=== PATIENT | female | born 1985 | race Caucasian/White ===

== ENCOUNTER 2018-02-21 16:53 | Emergency (ER) | END 2018-02-21 19:44 | disposition home or self-care (01) ==

== ENCOUNTER 2018-09-23 21:10 | Inpatient (IN) | payer MEDICAID ==
[~2018-09-23] VITALS: Ht 149.9 cm; Wt 67.8 kg
[~2018-09-23 21:10] MED LIST: ACET500C5 PO; PREN1TAB49
[2018-09-23] MEDS ORDERED: LACTATED RINGER'S 1,000 ML IV ONE (22:30)
[2018-09-23] MEDS: LACTATED RINGER'S 1,000 ML IV SCH (22:30)
[2018-09-24] MEDS ORDERED: TERBUTALINE 1 MG/ML INJ SC ONE (00:30)
[2018-09-24 00:36] VITALS: Ht 149.9 cm; Wt 67.8 kg
[2018-09-24 00:37] VITALS: BP 103/64; RESP 18
[2018-09-24] MEDS: LACTATED RINGER'S 1,000 ML IV SCH ×4 (02:00→12:48)
[2018-09-24] MEDS ORDERED: METHYLERGONOVINE 0.2 MG INJ IM PRN ×2 (04:00→17:30)
[2018-09-24] MEDS ORDERED: MISOPROSTOL 200 MCG TAB PR PRN ×2 (04:00→17:30)
[2018-09-24] MEDS ORDERED: OXYTOCIN 30 UNITS/LR 500 ML IV PRN ×2 (04:00→17:30)
[2018-09-24] MEDS ORDERED: CARBOPROST 250 MCG INJ IM PRN ×2 (04:00→17:30)
[2018-09-24] MEDS ORDERED: OXYTOCIN 30 UNITS/LR 500 ML IV SCH (04:00)
--- NOTE | 2018-09-24 05:38 | TRIAGE ---
OB Triage Datetime Report Generated by CPN: 09/24/2018 05:37 Datetime: 09/24/2018 05:27 Stage of : Labor Respiratory Effort: Unlabored Breath Sounds, Left: Clear and Equal Breath Sounds, Right: Clear and Equal Labor Evaluation Frequency: 3 Monitor Mode: External Duration (sec)2399: 35-65 Quality: Mild Pattern: Normal: <= 5 Contractions in 10 Minutes Resting Tone [place]: Relaxed Interventions: Side to Side Heart Rate FHR Baseline Rate: 130 Monitor Mode: External US FHR Baseline Changes: No Baseline Change Variability: Moderate 6-25 bpm Accelerations: 10X10 Decelerations: None Category: Category I Pain Assessment Pain Scale: 0 Pain Presence: None/Denies Pain Type: N/A Datetime: 09/24/2018 04:53 Assessment Type: Admission Assessment Vaginal Bleeding: None Maternal Assessment Level of Consciousness: Fully Conscious DTR's/Clonus: DTRs 2+; No Clonus Headache: Denies Blurred Vision: No Respiratory Effort: Unlabored; Regular Rhythm; Equal Expansion Breath Sounds, Left: Clear and Equal Breath Sounds, Right: Clear and Equal Nausea/Vomiting: Denies RUQ Epigastric Pain: Denies Lower Extremities Edema: None Degree: None Upper Extremities Edema: None Degree: None Facial Edema: None Fall Risk Assessment History of Falling: (0) No Secondary Diagnosis: (0) No Ambulatory Aid: (0) Bedrest/Nurse Assist IV Therapy: (0) No Gait: (0) Normal/Bedrest/Immobile Mental Status: (0) Oriented to Own Ability Fall Score: 0 Fall Risk Score Definition: No Risk: No action required Labor Evaluation Frequency: 5-12 Duration (sec)2399: 20-45 Quality: Mild Pattern: Normal: <= 5 Contractions in 10 Minutes Resting Tone [place]: Relaxed Pain Assessment Pain Scale: 2 Pain Presence: None/Denies Pain Type: N/A Pain Location: Abdomen Pain Goal: 2 Vaginal Exam Membrane Status: Intact Datetime: 09/24/2018 03:10 Stage of : OB Triage Maternal Assessment Level of Consciousness: Fully Conscious DTR's/Clonus: DTRs 2+ Headache: Denies Blurred Vision: No Respiratory Effort: Unlabored Breath Sounds, Left: Clear and Equal Breath Sounds, Right: Clear and Equal Nausea/Vomiting: Denies RUQ Epigastric Pain: Denies Labor Evaluation Frequency: 8-10 Monitor Mode: External Duration (sec)2399: 30-50 Quality: Mild Pattern: Normal: <= 5 Contractions in 10 Minutes Resting Tone [place]: Relaxed Interventions: Side to Side Heart Rate FHR Baseline Rate: 130 Monitor Mode: External US FHR Baseline Changes: No Baseline Change Variability: Moderate 6-25 bpm Accelerations: 15X15 Decelerations: Early Pain Assessment Pain Scale: 0 Pain Presence: None/Denies Pain Type: Dull; Ache Pain Goal: 0 Vaginal Exam Membrane Status: Intact Datetime: 09/24/2018 00:53 Stage of : Labor Labor Evaluation Frequency: 20 Monitor Mode: External Duration (sec)2399: 40-50 Quality: Mild Pattern: Normal: <= 5 Contractions in 10 Minutes Resting Tone [place]: Relaxed Heart Rate FHR Baseline Rate: 140 Monitor Mode: External US FHR Baseline Changes: No Baseline Change Variability: Moderate 6-25 bpm Accelerations: 15X15 Decelerations: None Category: Category I Datetime: 09/24/2018 00:26 Stage of : Labor Maternal Assessment Level of Consciousness: Fully Conscious Respiratory Effort: Unlabored Breath Sounds, Left: Clear and Equal Breath Sounds, Right: Clear and Equal Labor Evaluation Frequency: 5-8 Monitor Mode: External Duration (sec)2399: 40-70 Quality: Mild Pattern: Normal: <= 5 Contractions in 10 Minutes Resting [place]one [place]: Relaxed Monitor Mode: External US FHR Baseline Changes: No Baseline Change Variability: Moderate 6-25 bpm Accelerations: 10X10 Decelerations: None Category: Category I Pain Assessment Pain Scale: 3 Pain Presence: Intermittent Pain Type: Cramping; Dull; Ache Pain Location: Abdomen Pain Goal: 2 Pain Relief Measures: Comfort Measures Vaginal Exam Membrane Status: Intact Datetime: 09/23/2018 23:01 Stage of : OB Triage Heart Rate FHR Baseline Rate: 150 Monitor Mode: External US FHR Baseline Changes: No Baseline Change Variability: Moderate 6-25 bpm Accelerations: 10X10 Decelerations: Variable Category: Category I Comments: VARIABLE DECELERATION HEARD/SEEN 10-15 SECONDS TO 70S WITH RETURN TO BASELINE..PT TO LEFT TILT POSITION Pain Assessment Pain Scale: 3 Pain Presence: Intermittent Pain Type: Cramping Pain Location: Abdomen Pain Relief Measures: Comfort Measures Vaginal Exam Membrane Status: Intact Datetime: 09/23/2018 22:07 Stage of : OB Triage Labor Evaluation Frequency: 10-12 Monitor Mode: External Duration (sec)2399: 40-70 Quality: Mild Pattern: Normal: <= 5 Contractions in 10 Minutes Resting [place]one [place]: Relaxed Heart Rate FHR Baseline Rate: 130 Monitor Mode: External US FHR Baseline Changes: No Baseline Change Variability: Moderate 6-25 bpm Accelerations: 15X15 Decelerations: None Category: Category I Pain Assessment Pain Scale: 2 Pain Presence: Intermittent Pain Type: Dull; Ache Pain Location: Abdomen Pain Goal: 2 Pain Relief Measures: Comfort Measures Datetime: 09/23/2018 21:39 Time of Arrival: 09/23/2018 21:00 EGA: 37.4 Arrived By: Wheelchair Arrived From: Home Chief Complaint: MOVEMENT WORRISOME Movement: Present Contractions: Occasional Time Contractions Began: 09/23/2018 20:00 Contractions: X1 Rupture of Membranes: Denies Vaginal Bleeding: None Vaginal Discharge: Denies Recent Sexual Intercouse: Denies Abdominal Trauma: Not Applicable Patient Complaints: Cramping Additional Patient Complaints: OCCASIONAL ABDOMINAL CRAMPING 2/10 Time Provider Notified: 09/23/2018 22:00 Provider Notified: DR LANGLEY Initial Plan: OB ASSESSMENT,VSS,FHR TRACING AND TOCO, HX Datetime: 09/23/2018 21:37 Presentation 'A': Cephalic Datetime: 09/23/2018 21:29 Stage of : OB Triage Maternal Assessment Level of Consciousness: Fully Conscious DTR's/Clonus: DTRs 2+ Headache: Denies Blurred Vision: No Respiratory Effort: Unlabored Breath Sounds, Left: Clear and Equal Breath Sounds, Right: Clear and Equal Nausea/Vomiting: Denies RUQ Epigastric Pain: Denies Labor Evaluation Frequency: OCCAS IRRIT Monitor Mode: External Duration (sec)2399: 10-20 Pattern: Normal: <= 5 Contractions in 10 Minutes Resting Tone [place]: Relaxed Heart Rate FHR Baseline Rate: 135 Monitor Mode: External US FHR Baseline Changes: No Baseline Change Variability: Moderate 6-25 bpm Accelerations: 15X15 Decelerations: None Category: Category I Comments: REACTIVE Pain Assessment Pain Scale: 2 Pain Presence: Intermittent Pain Type: Dull; Ache Pain Location: Abdomen Pain Goal: 2 Pain Relief Measures: Comfort Measures Vaginal Exam Membrane Status: Intact
[2018-09-24] MEDS ORDERED: OXYTOCIN 30 UNITS/LR 500 ML BAG IV ONE (07:00)
[2018-09-24] MEDS ORDERED: CEFAZOLIN 2 GM/50 ML (PMX) 50 ML IVPB ONE (08:00)
--- NOTE | 2018-09-24 12:03 | PREAC ---
Date/Time of Note Date/Time of Note DATE: 09/24/18 TIME: 12:01 Anesthesia Eval and Record Evaluation Time Pre-Procedure Interview DATE: 09/24/18 TIME: 12:01 Age 33 Sex female NPO: 8 hrs Preoperative diagnosis IUP Planned procedure Repeat Csection Past Medical History Past Medical History: None Surgery & Anesthesia Issues No known issue Meds Anticoagulation: No Beta Kyaw within 24 hr: No Reason Beta Kyaw not given: Pt. not on B-Kyaw Active Scripts Acetaminophen* (Tylophen*) 500 Mg Capsule, 1 CAP PO Q6H PRN for PAIN AND OR ELEVATED TEMP, #20 CAP Prov:AFSHIN DE LUNA Jason COMPENSATION SPECIALIST 02/21/18 Reported Medications Vits W-Ca,Fe,Fa(<1MG) () 1 Tab Tablet 05/02/10 Vits W-Ca,Fe,Fa(<1MG) () 1 Tab Tablet 10/15/09 Current Medications Lactated Ringer's 1,000 ml @ 125 mls/hr Q8H IV Last administered on 09/24/18at 11:51; Admin Dose 125 MLS/HR; Start 09/23/18 at 22:30 Oxytocin/Lactated Ringer's 500 ml @ 125 mls/hr POST IV ; Start 09/24/18 at 04:00 Oxytocin/Lactated Ringer's 500 ml @ 0 mls/hr ONCE PRN IV VAGINAL BLEEDING; Start 09/24/18 at 04:00 Methylergonovine Maleate (Methergine) 0.2 mg ONCE PRN IM VAGINAL BLEEDING; Start 09/24/18 at 04:00 Carboprost Tromethamine (Hemabate) 250 mcg ONCE PRN IM VAGINAL BLEEDING; Start 09/24/18 at 04:00 Misoprostol (Cytotec) 1,000 mcg ONCE PRN VA VAGINAL BLEEDING; Start 09/24/18 at 04:00 Meds reviewed: Yes Allergies Coded Allergies: No Known Allergy (Verified , 05/02/10) Allergies Reviewed: Yes Labs/Studies Labs Reviewed: Reviewed by anesthesiologist Result Diagram: 09/23/18 2200 Laboratory Tests 09/23/18 22:00 Blood Bank Test 09/23/18 22:00 Antibody Screen NEGATIVE Blood Type O POSITIVE Rh Immune Globulin Candidate NO test: Positive Studies: ECG Pre-procedure Exam Last vitals Vital Signs Date Temp Pulse Resp B/P (MAP) Pulse Ox O2 O2 Flow FiO2 Time Delivery Rate 09/24/18 98.0 18 103/64 98 Room Air 00:37 (77) Airway: Adequate mouth opening, Adequate thyromental dist Mallampati: Mallampati II Teeth: Normal Lung: Normal Heart: Normal ASA Physical Status ASA physical status: 2 Emergency: None Planned Anesthetic Neuraxial: Epidural Pre-operative Attestations Prior to commencing anesthesia and surgery, the patient was re-evaluated, there was verification of: *The patient's identity *The results of appropriate recent lab work and preoperative vital signs *The above evaluation not changing prior to induction *Anesthetic plan, risk benefits, alternative and complications discussed with patient/family; questions answered; patient/family understands, accepts and wishes to proceed. ZAK MICHAELS MD Sep 24, 2018 12:03
[2018-09-24] MEDS ORDERED: ONDANSETRON 4 MG INJ ONE (13:02)
[2018-09-24] MEDS ORDERED: morphine SULFATE/PF (10 MG/10 ML) INJ ONE (13:02)
[2018-09-24] MEDS ORDERED: OXYTOCIN 10 UNIT INJ ONE (13:02)
[2018-09-24] MEDS ORDERED: FENTAnyl 50 MCG/ML VIAL ONE (13:51)
[2018-09-24] MEDS ORDERED: KETOROLAC 60 MG INJ IM STA (14:29)
[2018-09-24] MEDS ORDERED: AZITHROMYCIN 500MG/NS (PMX) 250 ML IVPB ONE (14:30)
--- NOTE | 2018-09-24 14:47 | PAC ---
Date/Time of Note Date/Time of Note DATE: 09/24/18 TIME: 14:46 Post-Anesthesia Notes Post-Anesthesia Note Last documented vital signs Vital Signs Date Temp Pulse Resp B/P (MAP) Pulse Ox O2 O2 Flow FiO2 Time Delivery Rate 09/24/18 98.0 18 103/64 98 Room Air 00:37 (77) Activity: WNL Respiratory function: WNL Cardiovascular function: WNL Mental status: Baseline Pain reasonably controlled: Yes Hydration appropriate: Yes Nausea/Vomiting absent: Yes Comments BP:105/65,pulse:78, spo2:100%,T:98,8 ZAK MICHAELS MD Sep 24, 2018 14:47
[2018-09-24] MEDS ORDERED: ONDANSETRON 4 MG INJ IV PRN (15:00)
[2018-09-24] MEDS ORDERED: DIPHENHYDRAMINE 50 MG INJ IV PRN (15:00)
[2018-09-24] MEDS ORDERED: KETOROLAC 30 MG INJ IV PRN (15:00)
[2018-09-24] MEDS ORDERED: morphine 2 MG INJ IV PRN (15:00)
[2018-09-24] MEDS ORDERED: NALOXONE (0.4 MG/ML) INJ IV PRN (15:00)
--- NOTE | 2018-09-24 15:56 | HP ---
Date/Time of Note Date/Time of Note DATE: 09/24/18 TIME: 15:50 OB - History Hx of Present Free Text/Dictation 33-year-old female 4 para 3 at 37+ weeks gestation admitted complaining of onset of uterine contractions started a few hours prior to admission She explained contractions as changing babies movement and or position Last Menstrual Period: January 23, 2018 Estimated Due Date: Oct 10, 2018 : 4 Para: 3 Care: Good Care Ultrasounds: Normal mid trimester US Obstetrical Complications: None Medical Complications: None Past Family/Social History * Past Medical, Surgical, Family and Obstetric Histories reviewed from chart. Blood Type: O+ Rubella: immune RPR/VDRL: Negative GBS Status: Negative HBsAG: Negative OB Admission Exam Vital Signs Vital Signs Vital Signs Date Temp Pulse Resp B/P (MAP) Pulse Ox O2 O2 Flow FiO2 Time Delivery Rate 09/24/18 98.0 18 103/64 98 Room Air 00:37 (77) Physical Exam HEENT: WNL Heart: Rhythm Normal Lungs: Clear, Equal Abdomen: WNL Extremities: Normal Reflexes: Normal Cervical Dilatation: None Effacement: 0% Station: -3 Membranes: Intact Heart Rate: 140's Accelerations: Accelerations Present Decelerations: No Decelerations Varibility: Marked Contractions on Admission: 6-10 Minutes Apart Date/Time Contractions Began: September 23, 2018 at 8:30 PM Frequency of Contractions: Every 1020 minutes Duration: Over 60 seconds Intensity: Mild Last 72 hours Lab Results CBC & BMP 09/23/18 22:00 OB Assessment/Plan Other Assessment: 37+ weeks gestation Previous x3 Labor contractions which became more intense bypassing time Patient desireS sterilization Other plan: Repeat section and tubal ligation ÁNGEL HERMAN MD Sep 24, 2018 15:56
--- NOTE | 2018-09-24 16:11 | OPR ---
Operative Report Planned Procedure Procedure date Sep 24, 2018 Procedure(s) Repeat section and tubal ligation Performed by see signature line Creative Intern: ANDREW KRAMER M.D. Anesthesiologist: ZAK MICHAELS MD Pre-procedure diagnosis 37+ weeks gestation Previous x3 Patient desired sterilization Labor contractions [id number] Anesthesia Type: [id number] spinal Post-Procedure Post-procedure diagnosis Status post and tubal ligation Findings Live Baby in OT position Clear amniotic fluid Large window on the previous uterine incision which was repaired by closing the uterine incision Normal-appearing right and left fallopian tubes and ovaries Estimated Blood Loss: 500 - 600 mls Specimen(s) Segments of right and left fallopian tubes Grafts/Implant(s) none Complication(s) none Pt Condition post procedure: stable Disposition: PACU Procedure Description Under satisfactory anaesthesia a Pfannenstiel incision was made two fingerbreadth above and parallel to the symphysis of pubis around the previous scar and previous scar was removed Incision was extended laterally to the border of the Recti muscles on either sides. Incision was carried down with sharp and blunt dissection until fascia was reached. Anterior Recti muscle fascia was incised in mid portion and in cision extended laterally to the border of skin incision. Fascia was mobilized from muscle superiorly and Recti muscles were from midline using sharp and blunt dissection. Peritoneum was visualized; Avoiding bowel and bladder it was incised . Incision was extended superiorly and inferiorly. Bladder blade was placed. Large window was observed in the left portion of the previous uterine scar. Small Delia clamp was used to open the window. The window was extended laterally to the border of Round Lig. on either sides and baby was delivered from OT. position . Amniotic fluid appeared clear. Cord blood was obtained and cord had 3 vessels . Placenta was delivered spontaneously and appeared intact and complete. Intrauterine cavity was rubbed with a laparotomy sponge. Uterine incision was closed in 2 layers using running stitches of No1 Monocryl. Hemostasis appeared secure. Ovaries and Fallopian tubes were within normal limits. Bilateral Tubal Ligation was performed by following procedure: R fallopian tube was raised in mid portion; a Delia clamp was placed below the fimbriae extending to proximal portion of the fallopian tube. Another clamp was placed parallel to the first and after incising the fallopian tube the stump was sutured using 0 Vicryl stitch. Hemostasis was secure . Same procedure was done on fallopian tube on the opposite side. Hemostasis appeared to be secure on ligated sites of either fallopian tubes. Announcing needle, lap sponge and instrument count to be correct abdomen was closed in layers as follows: Peritoneum and Recti muscles with running stitches of 20 Vicryl. Fascia with running stitch of No 1 PDS. Subcutaneous tissue with running stitches of 20 Chromic and skin was closed using libia. Patient tolerated the procedure well and was transferred to [facility] in good condition. ÁNGEL HERMAN MD Sep 24, 2018 16:10
[2018-09-24] MEDS ORDERED: LACTATED RINGER'S 1,000 ML IV SCH (17:10)
[2018-09-24 17:15] VITALS: BP 105/62; RESP 18
[2018-09-24] MEDS ORDERED: LANOLIN HPA 1 PKT TOP PRN (17:30)
[2018-09-24] MEDS ORDERED: HYDROCODONE/APAP (5/325) TAB PO PRN (17:30)
[2018-09-24] MEDS ORDERED: NA PHOSPHATE/BIPHOS 133 ML ENEMA PR PRN (17:30)
[2018-09-24 17:44] VITALS: BP 106/66; RESP 18
[2018-09-24] MEDS: CEFAZOLIN 2 GM/50 ML (PMX) 50 ML IVPB SCH (17:55)
[2018-09-24] MEDS: CLINDAMYCIN 300 MG CAP PO SCH (17:55)
--- NOTE | 2018-09-24 18:43 | NUR ---
EOSS PATIENT VSS , NO EMESIS NOTED @ THIS TIME / NO C/O PAIN , BOUNDING WELL WITH BABY , CONTINUE PLAN OF CARE .
[2018-09-24 19:40] VITALS: BP 98/60; PULSE 100; RESP 19
[2018-09-24] MEDS: SENNA/DOCUSATE NA (8.6MG/50MG) TAB PO SCH (21:00)
[2018-09-25] VITALS: BP 100/56; PULSE 82; RESP 18
[2018-09-25] MEDS: CEFAZOLIN 2 GM/50 ML (PMX) 50 ML IVPB SCH ×2 (01:31→09:28)
[2018-09-25] MEDS: LACTATED RINGER'S 1,000 ML IV SCH ×2 (03:34→08:40)
[2018-09-25 04:06] VITALS: BP 87/52; PULSE 86; RESP 18
[2018-09-25] MEDS: CLINDAMYCIN 300 MG CAP PO SCH ×5 (06:00→23:48)
--- NOTE | 2018-09-25 06:31 | NUR ---
EOSS: PATIENT IN STABLE CONDITION, GOOD URINE OUTPUT, BLEEDING IS LIGHT, FUNDUS IS FIRM. BONDS WELL WITH BABY.
[2018-09-25 08:30] VITALS: BP 96/50; PULSE 77; RESP 18
[2018-09-25] MEDS: SENNA/DOCUSATE NA (8.6MG/50MG) TAB PO SCH ×2 (09:00→21:34)
[2018-09-25] MEDS ORDERED: BISACODYL 10 MG SUPP PR ONE (10:30)
[2018-09-25 12:15] VITALS: BP 92/56; PULSE 83
--- NOTE | 2018-09-25 13:15 | NUR ---
Sylvia/C SUKH ORDERED, INSTRUCTED TO VOID WITHIN 6 HRS AND CALL FOR HELP WHEN READY TO AMBULATE. PT VERBALIZED UNDERSTANDING Addendum: 09/25/18 at 1329 by TAMIKO VIVAR RN Amended: Links added.
[2018-09-25] MEDS: IBUPROFEN 800 MG TAB PO SCH ×2 (13:49→21:35)
[2018-09-25 15:43] VITALS: BP 96/52; PULSE 84; RESP 18
--- NOTE | 2018-09-25 17:13 | NUR ---
EOSS: PT V/S STABLE AND WNL, IV AND PO PAIN MEDS FOR PAIN MGMT AND NO C/O PAIN AT THIS TIME, POST D/C LUZ, VOID*1 WITHOUT DIFFICULTY, BREAST AND BOTTLE FED BABY, BONDING WELL WITH BABY
[2018-09-25] MEDS: OXYCODONE/ACETAMINOPHEN (5/325) TAB PO PRN (17:29)
--- NOTE | 2018-09-25 19:16 | PN ---
Date/Time of Note Date/Time of Note DATE: 09/25/18 TIME: 19:15 Assessment/Plan VTE Prophylaxis VTE Prophylaxis Intervention: ambulation Lines/Catheters IV Catheter Type (from Nrsg): Peripheral IV Assessment/Plan Assessment/Plan Status post postop day #1 We will continue to ambulate and advance diet Repeat CBC following day for observation of mildly elevated white count with a left shift Subjective 24 Hr Interval Summary No bowel movement but passing flatus Constitutional: no complaints, improved, ambulates, BM, flatus, urine output Pain Control: well controlled Exam/Review of Systems Vital Signs Vitals Vital Signs Date Temp Pulse Resp B/P (MAP) Pulse Ox O2 O2 Flow FiO2 Time Delivery Rate 09/25/18 98.3 84 18 96/52 (67) Room Air 15:43 09/25/18 95 12:15 Intake and Output 09/24/18 09/24/18 09/25/18 1414:59 22:59 06:59 IntakeIntake Total 950 ml 600 ml OutputOutput Total 2200 ml 1029 ml 1700 ml BalanceBalance -1250 ml -429 ml -1700 ml Exam Free Text/Dictation Abdomen is soft with present bowel sounds and abdomen does not seem distended Incision is well covered Constitutional: alert, oriented, well developed Psych: no complaints, nl mood/affect Head: normocephalic, atraumatic Eyes: nl conjunctiva, EOMI, nl lids, nl sclera ENMT: nl external ears & nose, nl lips & teeth, nl nasal mucosa & septum, mu cosa pink and moist Neck: supple, non-tender Respiratory: clear to auscultation, normal air movement Cardiovascular: regular rate and rhythm, nl pulses Gastrointestinal: soft, nl liver, spleen, non-tender Musculoskeletal: nl extremities to inspection, nl gait and stance Extremities: normal pulses Neurological: SKETCH LINER II-XII intact, nl mental status, nl speech, nl strength Skin: nl turgor, rash or lesions Lymph: nl lymph nodes Results Result Diagram: 09/25/18 0625 ÁNGEL HERMAN MD Sep 25, 2018 19:16
[2018-09-25 20:30] VITALS: BP 104/62; PULSE 82; RESP 18
[2018-09-26 03:40] VITALS: BP 100/60; PULSE 79; RESP 18
--- NOTE | 2018-09-26 05:30 | NUR ---
EOSS: Patient stable, bonding, , bottle feeding the , able to take care self and the , all needs attended
[2018-09-26] MEDS: IBUPROFEN 800 MG TAB PO SCH ×3 (05:54→21:51)
[2018-09-26] MEDS: CLINDAMYCIN 300 MG CAP PO SCH ×3 (05:54→17:51)
[2018-09-26 08:43] VITALS: BP 89/50; PULSE 72; RESP 20
[2018-09-26] MEDS: SENNA/DOCUSATE NA (8.6MG/50MG) TAB PO SCH ×2 (09:41→21:51)
--- NOTE | 2018-09-26 11:52 | NUR ---
pt. showered w/ out distress. dressing removed and incision open to air w/ libia and D&I. Above incision is noted two vertical skin tears where tape from dressing was applied. first tear is 3cm x .25cm, and second tear is .75cm x .25 cm. pictures taken and wound consult ordered. pt. denies any distress at this time. cont. to monitor.
--- NOTE | 2018-09-26 14:03 | NUR ---
rn continues to do hourly rounding and found pt. ambulating in room w/out distress. incision D&I w/ libia.The two other skin tears are pink w/out drainage and open to air. pt. denies complaints at this time. cont. w/ poc
[2018-09-26 15:41] VITALS: BP 91/44; PULSE 73; RESP 16
[2018-09-26] MEDS: OXYCODONE/ACETAMINOPHEN (5/325) TAB PO PRN (17:52)
[2018-09-26] MEDS ORDERED: ACETAMINOPHEN 325 MG TAB PO PRN (18:00)
--- NOTE | 2018-09-26 18:00 | DS ---
Date/Time of Note Date/Time of Note Home today or next DATE: 09/26/18 TIME: 17:59 Obstetrical Discharge Record Final Diagnosis Final Diagnosis: Term delivered Other Final Diagnosis Status post repeat and tubal ligation Vaginal Delivery Obstetrical Delivery: Bilateral Tubal Ligation Section Section: Repeat Condition on Discharge Physical Assessment Last Vitals: See nurse's notes Voiding: Yes Bowel Movement: Yes Breast: Soft, non-tender, Filling Fundus: Firm Abdomen and Incision: Abdomen is soft with present bowel sounds and abdomen does not seem distended Incision is healing well without induration and or erythema Episiotomy: Not applicable Calf Tenderness: No Patient Condition: Good ÁNGEL HERMAN MD Sep 26, 2018 18:00
--- NOTE | 2018-09-26 18:02 | DS ---
Date/Time of Note Date/Time of Note DATE: 09/26/18 TIME: 18:00 Discharge Summary Admission/Discharge Info Admit Date/Time Sep 23, 2018 at 23:54 Discharge Date/Time September 26 or 2018 Discharge Diagnosis Status post and tubal ligation Patient Condition: Good Procedures Repeat and tubal ligation Hx of Present Illness 33-year-old female with and tubal ligation at term in labor Hospital Course Hospital course remained uncomplicated Patient tolerated diet well and was ambulating without problems Incision was healing well Discharge home on the second or third day with good prognosis and condition Home Meds Active Scripts Acetaminophen* (Tylophen*) 500 Mg Capsule, 1 CAP PO Q6H PRN for PAIN AND OR ELEVATED TEMP, #20 CAP Prov:AFSHIN DE LUNA SPECIAL EDUCATION TUTOR 02/21/18 Reported Medications Vits W-Ca,Fe,Fa(<1MG) () 1 Tab Tablet 05/02/10 Vits W-Ca,Fe,Fa(<1MG) () 1 Tab Tablet 10/15/09 Follow-up Plan To 3 days in clinic for staple removal Primary Care Provider Care Physician No Primary Time spent on discharge: > 30 minutes Pending Labs Laboratory Tests Test 09/26/18 06:35 White Blood Count 12.2 10^3/ul (4.8-10.8) Red Blood Count 3.44 10^6/ul (4.20-5.40) Hemoglobin 10.5 g/dl (12.0-16.0) Hematocrit 32.1 % (37.0-47.0) Mean Corpuscular Volume 93.3 fl (82.0-101.0) Mean Corpuscular Hemoglobin 30.5 pg (29.0-33.0) Mean Corpuscular Hemoglobin Concent 32.7 g/dl (32.0-37.0) Red Cell Distribution Width 13.9 % (11.5-14.5) Platelet Count 167 10^3/UL (140-415) Mean Platelet Volume 10.6 fl (7.4-10.4) Immature Granulocytes % 0.700 % (0.001-0.429) Neutrophils % 75.4 % (39.0-77.0) Lymphocytes % 13.3 % (15.0-51.0) Monocytes % 8.8 % (0.0-11.0) Eosinophils % 1.6 % (0.0-7.0) Basophils % 0.2 % (0.0-2.0) Nucleated Red Blood Cells % 0.0 /100WBC (0.0-0.0) Immature Granulocytes # 0.090 10^3/ul (0.0-0.031) Neutrophils # 9.2 10^3/ul (1.6-7.5) Lymphocytes # 1.6 10^3/ul (0.8-2.9) Monocytes # 1.1 10^3/ul (0.3-0.9) Eosinophils # 0.2 10^3/ul (0.0-0.5) Basophils # 0.0 10^3/ul (0.0-0.1) Nucleated Red Blood Cells # 0.0 10^3/ul (0.0-0.0) ÁNGEL HERMAN MD Sep 26, 2018 18:02
--- NOTE | 2018-09-26 18:04 | PD.PPDC ---
SAMPLE WORKER Discharge Instruction Provider Information Physician Information 33-year-old female has repeat and tubal ligation Diagnosis [id number] Final Diagnosis: [id number] Status post repeat tubal ligation Condition [id number] Patient Condition: Saufg3l Good Diet Zyshs6Zz Diet: Zkzxf3w Resume Regular Diet Activity/Restrictions Qwlah7Ng Activity: Ubfih3p May Shower Jqeqh2Vs Restrictions: Twhia3c No Exercising No Lifting Nothing in the Vagina No Tampons, douche Esoqw9Vx Return to Work or School: Tvxwa1h Nov 25, 2018 Wound/Drain Care Instructions [id number] Wound/Drain Care Instructions: Eqcdq4u Keep clean and dry Follow-up Follow-up with Physician: 4, Day/Days (In clinic for staple removal) Return to clinic for [id number] BUSINESS PROCESS ANALYST Instructions: Yuvxt8g Fever greater than 101 Chills Vetnt2Ls OB Instructions: Wcqrz6h Breast Tenderness Depression Comment: Pelvic rest and no hard activity for 2 months Itacz3Rr Surgical Instructions: Ztlfm8l Incisional Drainage Incisional Redness ÁNGEL HERMAN MD Sep 26, 2018 18:04
[2018-09-26] MEDS ORDERED: IBUP800T48 PO (18:05)
[2018-09-26] MEDS ORDERED: ACET325T33 PO (18:05)
[2018-09-26 21:00] VITALS: BP 130/54; PULSE 73; RESP 17
[2018-09-27] MEDS: ACETAMINOPHEN 325 MG TAB PO SCH ×3 (00:42→11:45)
[2018-09-27] MEDS: CLINDAMYCIN 300 MG CAP PO SCH ×3 (00:42→11:45)
[2018-09-27 04:00] VITALS: BP 131/72; PULSE 57; RESP 18
[2018-09-27] MEDS: IBUPROFEN 800 MG TAB PO SCH ×2 (05:51→13:51)
--- NOTE | 2018-09-27 06:22 | NUR ---
EOSS PATIENT IN STABLE CONDITION, BONDING WELL WITH BABY, INCISION DRY AND INTACT WITH SKIN TEAR ON THE LINE WERE THE ORIGINAL DRESSING WAS PLACED, PICTURES TAKEN, ABDOMINAL BINDER WAS PLACED FOR SUPPORT,, PASSING GAS, AMBULATING WELL, FUNDUS FIRM WITH SCANT AMOUNT OF LOCHIA. AFEBRILE
--- NOTE | 2018-09-27 08:27 | NUR ---
Wound care consult: Addendum note for 09/26/18 Status post postop day #1 Per Alyssa, unit RN ext [id number] patient obtained 2 skin tears noted when dressing removed 09/26/18. 3cm x 0.05cm and 0.5cm x 0.05 cm respectively. Advised to paint Betadine wipes daily and open to air to dry. Unit RN understood recommendation as verbalized. Ralph Fuentes RN MSN WOCN CM
[2018-09-27] MEDS ORDERED: DIPHTH/TET/ACEL PERTUSS (ADULT) 0.5 ML VIAL IM* ONE (09:00)
[2018-09-27] MEDS ORDERED: MEASLES,MUMPS,RUBELLA VACCINE INJ SC* ONE (09:00)
[2018-09-27 09:10] VITALS: BP 100/60; PULSE 65; RESP 18
[2018-09-27] MEDS: SENNA/DOCUSATE NA (8.6MG/50MG) TAB PO SCH (09:28)
--- NOTE | 2018-09-27 14:48 | NUR ---
PT DISCHARGED HOME WITH MOM . PT IS COMFORTABLE AND STABLE, NO DISTRESS NOTED. POST OP AND POST DISCHARGE INSTRUCTIONS DISCUSSED AND REINFORCED. PRESCRIPTION AND STAPLE REMOVAL KIT PROVIDED TO PT. Addendum: 09/27/18 at 1449 by DORYS MADERA RN Amended: Links added.
== END 2018-09-27 14:50 | disposition home or self-care (01) | DRG 785 ==
LOC: OBT 21:10 → L-D 21:11 → OBT 23:54 → L-D 09-24 04:51 → PP1 09-24 17:10
PROVIDERS: ADMIT Obstetrics & Gynecology; ATTEND Obstetrics & Gynecology
PROC: 0UB70ZZ Excision of Bilateral Fallopian Tubes, Open Approach (ICD-10-PCS; 2018-09-23)
PROC: 10D00Z1 Extraction of Products of Conception, Low, Open Approach (ICD-10-PCS; principal; 2018-09-24 13:00)
DX: O34.211 Maternal care for low transverse scar from previous cesarean delivery (principal); Z3A.37 37 weeks gestation of pregnancy; Z37.0 Single live birth; Z30.2 Encounter for sterilization
CPT/HCPCS: 36415; 81003; 85025; 85610; 85730; 86592; 86850; 86900; 86901; 87340; 88302; 96360; 96372; 99464; G0463; J0456; J0690; J1885; J2274; J2405; J2590; J3010; J3105; J7120